=== PATIENT | male | born 1975 | race Caucasian/White ===

== ENCOUNTER 2019-03-30 16:10 | Emergency (ER) | payer BC ==
--- NOTE | 2019-03-30 17:08 | ER Document Report ---
ED Medical Screen (RME) - General Chief Complaint: Shortness Of Breath Stated Complaint: SHORTNESS OF BREATH Time Seen by Provider: 03/30/19 17:02 Primary Care Provider: CARLOS MANUEL HILLMAN [Primary Care Provider] - Follow up as needed Mode of Arrival: Ambulatory Information source: Patient Notes: Otherwise healthy 44-year-old male presenting with chest pain or shortness of breath. Patient reports symptoms ongoing for the last few days. He does report a couple weeks ago he was treated for an upper respiratory infection. Patient denies any recent travel, denies any history of DVT or PE. He has tachycardic in triage. I have greeted and performed a rapid initial assessment of this patient. A comprehensive ED assessment and evaluation of the patient, analysis of test results and completion of the medical decision making process will be conducted by additional ED providers. I have specifically instructed the patient or family members with the patient to immediately return to any nursing staff should anything change in the patient's condition or with their chief complaint. - Related Data Allergies/Adverse Reactions: No Known Allergies Allergy (Unverified 03/30/19 17:03) Past Medical History Past Surgical History: Physical Exam - Vital signs Vitals: Temp Pulse Resp BP Pulse Ox 97.8 F 116 H 17 164/100 H 98 03/30/19 16:14 03/30/19 16:14 03/30/19 16:14 03/30/19 16:14 03/30/19 16:14 Course - Vital Signs Vital signs: Temp Pulse Resp BP Pulse Ox 97.8 F 116 H 17 164/100 H 98 03/30/19 16:14 03/30/19 16:14 03/30/19 16:14 03/30/19 16:14 03/30/19 16:14 Doctor's Discharge - Discharge Referrals: CARLOS MANUEL HILLMAN [Primary Care Provider] - Follow up as needed
[2019-03-30 17:34] LABS: ABSOLUTE BASOPHILS # (AUTO) 0.1 10^3/uL (0.0-0.2); ABSOLUTE EOSINOPHILS # (AUTO) 0.1 10^3/uL (0.0-0.6); ABSOLUTE LYMPHOCYTES (AUTO) 3.4 10^3/uL (0.5-4.7); ABSOLUTE MONOCYTES (AUTO) 0.9 10^3/uL (0.1-1.4); ABSOLUTE NEUT (AUTO) 7.9 10^3/uL (1.7-8.2); BASOPHILS % (AUTO) 0.7 % (0-2); EOSINOPHILS % (AUTO) 1.1 % (0-6); HEMATOCRIT 41.1 % (37.9-51.0); HEMOGLOBIN 14.3 g/dL (13.5-17.0); LYMPHOCYTES % (AUTO) 27.2 % (13-45); MEAN CORPUSCULAR HEMOGLOBIN 31.5 pg (27.0-33.4); MEAN CORPUSCULAR HGB CONC 34.7 g/dL (32.0-36.0); MEAN CORPUSCULAR VOLUME 91 fl (80-97); MONOCYTES % (AUTO) 7.5 % (3-13); PLATELET COUNT 274 10^3/uL (150-450); RED BLOOD COUNT 4.53 10^6/uL (4.35-5.55); RED CELL DISTRIBUTION WIDTH 13.4 % (11.5-14.0); SEGMENTED NEUTROPHILS % (AUTO) 63.5 % (42-78); TOTAL CELLS COUNTED % (AUTO) 100 %; WHITE BLOOD COUNT 12.4 10^3/uL (4.0-10.5)
--- NOTE | 2019-03-30 17:44 | RADIOLOGY REPORT (SQ) ---
EXAM DESCRIPTION: CHEST 2 VIEWS COMPLETED DATE/TIME: 03/30/2019 5:30 pm REASON FOR STUDY: sob/chest pain COMPARISON: Chest radiographs 04/20/2011 EXAM PARAMETERS: NUMBER OF VIEWS: two views TECHNIQUE: Digital Frontal and Lateral radiographic views of the chest acquired. RADIATION DOSE: NA LIMITATIONS: none FINDINGS: LUNGS AND PLEURA: No opacities, masses or pneumothorax. No pleural effusion. MEDIASTINUM AND HILAR STRUCTURES: No masses or contour abnormalities. HEART AND VASCULAR STRUCTURES: Heart normal size. No evidence for failure. BONES: No acute findings. HARDWARE: None in the chest. OTHER: No other significant finding. IMPRESSION: NO ACUTE RADIOGRAPHIC FINDING IN THE CHEST. TECHNICAL DOCUMENTATION: JOB ID: [id number] [employer]- All Rights Reserved Reading location - IP/workstation name: [email or web address]
[2019-03-30 17:52] LABS: ALBUMIN 4.5 g/dL (3.5-5.0); ALKALINE PHOSPHATASE 63 U/L (38-126); ANION GAP 14 (5-19); ASPARTATE AMINO TRANSFERASE 51 U/L (17-59); BILIRUBIN,DIRECT 0.3 mg/dL (0.0-0.4); BILIRUBIN,TOTAL 0.3 mg/dL (0.2-1.3); BLOOD UREA NITROGEN 18 mg/dL (7-20); CALCIUM 9.8 mg/dL (8.4-10.2); CARBON DIOXIDE 27 mmol/L (22-30); CHLORIDE 99 mmol/L (98-107); GLUCOSE 134 mg/dL (75-110); TOTAL PROTEIN 7.3 g/dL (6.3-8.2)
--- NOTE | 2019-03-30 23:19 | ER Document Report ---
ED Respiratory Problem - General Chief Complaint: Shortness Of Breath Stated Complaint: SHORTNESS OF BREATH Time Seen by Provider: 03/30/19 17:02 Mode of Arrival: Ambulatory Notes: Patient is a 44-year-old male that comes emergency department for chief complaint of shortness of breath. He states that he seems just not to be able to catch his breath and this is worse with exertion. He denies any areas of pain. He denies dizziness, fever, congestion, cough, nausea, vomiting. He states 2 weeks ago he had a mild cough but this resolved. He recently quit smoking. He denies recent travel or surgery, lower extremity swelling, or personal/family history of blood clots. He denies recreational drugs. He states he is treated for anxiety/depression but he denies any medical history otherwise. - Related Data Allergies/Adverse Reactions: No Known Allergies Allergy (Unverified 03/30/19 17:03) Past Medical History - General Information source: Patient - Social History Smoking Status: Former Smoker Frequency of alcohol use: None Drug Abuse: None Lives with: Family Family History: Reviewed & Not Pertinent Patient has suicidal ideation: No Patient has homicidal ideation: No Psychiatric Medical History: Reports: Hx Anxiety, Hx Depression Past Surgical History: - Immunizations Immunizations up to date: Yes Hx Diphtheria, Pertussis, Tetanus Vaccination: Yes Review of Systems - Review of Systems Constitutional: No symptoms reported EENT: No symptoms reported Cardiovascular: No symptoms reported Respiratory: See HPI Gastrointestinal: No symptoms reported Genitourinary: No symptoms reported Male Genitourinary: No symptoms reported Musculoskeletal: No symptoms reported Skin: No symptoms reported Hematologic/Lymphatic: No symptoms reported Neurological/Psychological: No symptoms reported Physical Exam - Vital signs Vitals: Temp Pulse Resp BP Pulse Ox 97.8 F 116 H 17 164/100 H 98 03/30/19 16:14 03/30/19 16:14 03/30/19 16:14 03/30/19 16:14 03/30/19 16:14 - Notes Notes: GENERAL: Alert, interacts well. No acute distress. HEAD: Normocephalic, atraumatic. EYES: Pupils equal, round, and reactive to light. Extraocular movements intact. ENT: Oral mucosa moist, tongue midline. Oropharynx unremarkable. Airway patent. NECK: Full range of motion. Supple. Trachea midline. LUNGS: Clear to auscultation bilaterally, no wheezes, rales, or rhonchi. No respiratory distress. HEART: Tachycardia, normal rate, no murmur ABDOMEN: Soft, non-tender. Non-distended. Bowel sounds present in all 4 quadrants. GENITOURINARY: Deferred EXTREMITIES: Moves all 4 extremities spontaneously. No edema, normal radial and dorsalis pedis pulses bilaterally. No cyanosis. BACK: no cervical, thoracic, lumbar midline tenderness. No saddle anesthesia, normal distal neurovascular exam. Moves all extremities in full range of motion. NEUROLOGICAL: Alert and oriented x3. Normal speech. Cranial nerves II through XII grossly intact. PSYCH: Normal affect, normal mood. SKIN: Warm, dry, normal turgor. No rashes or lesions noted. Course - Re-evaluation Re-evalutation: Patient does state that he has shortness of breath that has not resolved. He is clear lungs on my evaluation, he is not hypoxic but he is tachycardic. Abdomen is soft, he denies chest pain, no lower extremity swelling, recently stopped smoking, he does report occasional cough but is not coughing on my exam. CBC unremarkable, chemistry unremarkable, troponin negative after being drawn with over 8 hours of symptoms. D-dimer from triage is positive. Suggestive of possible possible upper respiratory inflammation versus pulmonary embolism at this point. EKG unremarkable. Discussed with patient. CT will be performed to rule out pulmonary embolism or emergent cause of his symptoms. CTA negative. I gave patient IV fluids and his tachycardia resolved. On reevaluation he states in general he actually feels much better. Patient is smiling and requesting to go home. He was given a dose of dexamethasone here for possible upper airway inflammation with occasional cough. He never had any chest pain. He has no additional complaints. Discussed follow-up and return precautions. Stable at time of discharge. - Vital Signs Vital signs: Temp Pulse Resp BP Pulse Ox 97.8 F 94 14 124/81 96 03/31/19 01:50 03/31/19 01:50 03/31/19 01:50 03/31/19 01:50 03/31/19 02:28 - Laboratory Result Diagrams: 03/30/19 17:22 03/30/19 17:22 Laboratory results interpreted by me: 03/30/19 03/30/19 03/30/19 17:22 17:22 17:22 WBC 12.4 H D-Dimer 1.25 H Glucose 134 H - EKG Interpretation by Me Additional EKG results interpreted by me: EKG shows sinus tachycardia at a rate of 102, flattened T waves laterally and inferiorly but no T wave inversions or ST segment changes in consecutive leads. QTC of 417. Discharge - Discharge Clinical Impression: Shortness of breath Condition: Stable Disposition: HOME, SELF-CARE Additional Instructions: Your imaging and work-up today did not show any concerning findings. The shortness of breath appears to be from your upper airway, you have been treated with this, this should improve with time. Improve your hydration. Follow-up with primary care. Congratulations on stopping smoking! Return if you worsen including fevers, passing out, chest pain, severe worsening difficulty breathing, or any other concerning or worsening symptoms. Forms: Return to Work
--- NOTE | 2019-03-31 00:22 | RADIOLOGY REPORT (SQ) ---
CLINICAL HISTORY: elevated D-Dimer 1.25, tachycardia, short of breath COMPARISON: None. 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 MIPS reconstructions were generated. This exam was performed according to our departmental dose-optimization program, which includes automated exposure control, adjustment of the mA and/or kV according to patient size and/or use of iterative reconstruction technique. MIP images were generated. FINDINGS: Thoracic aorta is normal in course and caliber without aneurysm or dissection. Pulmonary arteries are adequately opacified without acute or chronic filling defects. The heart is normal in size. There is no pericardial effusion. Intrathoracic lymph nodes are not enlarged. There is no pleural effusion, pleural thickening or pneumothorax. Central airways are patent. Lungs are clear with no consolidation, mass or interstitial lung disease. There are no acute abnormalities within the limited images of the upper abdomen. There are no acute osseous findings. No suspicious bony lesions. IMPRESSION: No aortic dissection or aneurysm. No pulmonary embolus. No pneumonia.
[2019-03-31] MEDS ORDERED: NORMAL SALINE 1000 ML 1,000 ML IV ONE (00:45)
[2019-03-31 01:50] VITALS: BP 124/81
[2019-03-31] MEDS ORDERED: DEXAMETHASONE SOD PHOS INJ 10 MG/1 ML VIAL IV ONE (02:13)
--- NOTE | 2019-03-31 19:30 | EKG REPORT ---
SEVERITY:- BORDERLINE ECG - SINUS TACHYCARDIA BORDERLINE T WAVE ABNORMALITIES : Confirmed by: Cheryl Irwin MD 31-Mar-2019 19:29:24
== END 2019-03-31 02:33 | disposition home or self-care (01) ==
LOC: ER 16:10
DX: R06.02 Shortness of breath (principal); R00.0 Tachycardia, unspecified
CPT/HCPCS: 93005; 99284; 96361; 96374; 36415; 85025; 80053; 84484; 85379; 71046; 71275; 93010; J7030; J1100